=== PATIENT | female | born 1990 | race Caucasian/White ===

== ENCOUNTER 2020-11-08 04:00 | Inpatient (IN) ==
[2020-11-08] MEDS ORDERED: Famotidine 20 MG/2 ML VIAL IVP PRN (04:18)
[2020-11-08] MEDS ORDERED: Naloxone 0.4 MG/ML INJ IVP PRN (04:18)
[2020-11-08] MEDS ORDERED: *HR* Nalbuphine 10 MG/ML AMPUL IV PRN (04:18)
[2020-11-08] MEDS ORDERED: Metoclopramide 10 MG/2 ML VIAL IVP PRN (04:18)
[2020-11-08] MEDS ORDERED: Lidocaine 1% 20 ML MDV INFILT PRN (04:18)
[2020-11-08] MEDS ORDERED: Oxytocin 20 units/ LR 1000 mL 20 UNIT/1,000 ML BAG IVC SCH ×2 (04:30→18:45)
[2020-11-08] MEDS ORDERED: FLU Vac QV 20-21 (6Month+)/PF 0.5 ML SYRINGE IM ONE (04:39)
[2020-11-08] MEDS ORDERED: miSOPROStoL 25 MCG TABLET PO ONE (05:00)
[2020-11-08] MEDS: Ringers Solution, Lactated 1,000 ML IVC SCH ×3 (05:08→14:03)
[2020-11-08 05:15] LABS: Amphetamine Screen,Urine Negative ng/mL (Cutoff=1000); Barbiturate Screen,Urine Negative ng/mL (Cutoff=200); Benzodiazepines Screen,Urine Negative ng/mL (Cutoff=200); Cannabinoid Screen,Urine Negative ng/mL (Cutoff = 50); Cocaine Screen,Urine Negative ng/mL (Cutoff= 300); Creatinine,Urine 103 mg/dL; Opiate Screen,Urine Negative ng/mL (Cutoff=300); Phencyclidine Screen,Urine Negative ng/mL (Cutoff=25); Protein/Creatinine Ratio,Urine 0.25 mg/mg (0.00-0.20)
[2020-11-08 05:25] LABS: Alanine Aminotransferase 17 Units/L (7-52); Aspartate Amino Transferase 22 Units/L (13-39); BUN/Creatinine Ratio 25 (6-26); Blood Urea Nitrogen 11 mg/dL (6-20); Lactate Dehydrogenase 190 Units/L (140-271); Uric Acid 4.1 mg/dL (2.3-7.6); eGFR For African Americans > 60 (> 60); eGFR For Non-African Americans > 60 (> 60)
[2020-11-08 05:40] LABS: Basophils % 0.2 %; Eosinophils # 0.2 K/mcL (0.0-0.6); Eosinophils % 1.8 %; Hematocrit 35.1 % (35.3-44.9); Hemoglobin 11.6 g/dL (11.5-15.4); Lymphocytes # 2.1 K/mcL (0.6-4.6); Mean Corpuscular Hemoglobin 28.6 pg (28.0-33.3); Mean Corpuscular Volume 86.5 fL (83.0-100.0); Mean Platelet Volume 11.4 fL (9.4-12.4); Monocytes # 0.7 K/mcL (0.0-1.3); Monocytes % 7.3 %; Neutrophils # 6.4 K/mcL (1.6-8.9); Platelet Count 202 K/mcL (140-400); Red Blood Count 4.06 M/mcL (3.82-4.97); Red Cell Distribution Width 12.8 % (11.5-14.5); Segmented Neutrophils % 67.7 %; White Blood Count 9.4 K/mcL (4.3-11.1)
[2020-11-08] MEDS ORDERED: Epidural Premix (fent/bupiv) 110 ML EP ONE (13:33)
[2020-11-08] MEDS ORDERED: Ropivacaine/PF 0.2% 20 ML VIAL ONE (13:34)
[2020-11-08] MEDS ORDERED: *HR* FentaNYL (PF) 100 MCG/2 ML VIAL ONE (13:34)
[2020-11-08] MEDS ORDERED: EPHEDrine 50 MG/ML VIAL IVP PRN (13:58)
[2020-11-08] MEDS ORDERED: Epidural Premix (fent/bupiv) 110 ML EP SCH (14:00)
[2020-11-08] MEDS ORDERED: Ondansetron 4 MG/2 ML VIAL IVP ONE (16:29)
[2020-11-08] MEDS ORDERED: Rho Immune Globulin 1,500 UNIT SYRINGE IM PRN (18:45)
[2020-11-08] MEDS ORDERED: Measles/Mumps/Rubella Vacc 0.5 ML VIAL SQ PRN (18:45)
[2020-11-08] MEDS ORDERED: Sennosides 8.6 MG TABLET PO PRN (18:45)
[2020-11-08] MEDS ORDERED: Oxytocin 20 units/ LR 1000 mL 20 UNIT/1,000 ML BAG IVC ONE (18:45)
[2020-11-08] MEDS ORDERED: Acetaminophen 325 MG TABLET PO PRN (18:45)
[2020-11-08] MEDS ORDERED: Benzocaine/Menthol 56 GM AEROSOL SPRAY TP PRN (18:45)
[2020-11-08] MEDS: Ibuprofen 600 MG TABLET PO PRN (20:48)
[2020-11-09] MEDS: Ibuprofen 600 MG TABLET PO PRN (03:24)
[2020-11-09 04:58] LABS: Basophils % 0.2 %; Eosinophils # 0.1 K/mcL (0.0-0.6); Hemoglobin 11.3 g/dL (11.5-15.4); Immature Granulocytes % 0.6 % (0-4); Lymphocytes # 2.3 K/mcL (0.6-4.6); Lymphocytes % 16.2 %; Mean Corpuscular HGB Conc 34.2 g/dL (31.6-35.5); Mean Corpuscular Hemoglobin 29.6 pg (28.0-33.3); Mean Corpuscular Volume 86.4 fL (83.0-100.0); Mean Platelet Volume 12.2 fL (9.4-12.4); Monocytes # 1.1 K/mcL (0.0-1.3); Monocytes % 7.6 %; Neutrophils # 10.7 K/mcL (1.6-8.9); Platelet Count 191 K/mcL (140-400); Red Blood Count 3.82 M/mcL (3.82-4.97); Red Cell Distribution Width 12.8 % (11.5-14.5); Segmented Neutrophils % 74.4 %; White Blood Count 14.4 K/mcL (4.3-11.1)
[2020-11-09] MEDS ORDERED: Prenatal Vit/FA 1 EACH TABLET PO SCH (09:00)
[2020-11-09] MEDS ORDERED: NON-FORMULARY MEDICATION 1 EACH EACH (Prenatal Caplet 1 TAB) PO SCH (09:00)
[2020-11-09] MEDS ORDERED: FLU Vac QV 20-21 (6Month+)/PF 0.5 ML SYRINGE IM ONE (14:50)
[2020-11-09 15:33] VITALS: BP 130/88
== END 2020-11-09 18:28 | disposition home or self-care (01) | DRG 806 ==
LOC: 1NENULAB 04:07 → 1NENUOBS 19:34
PROVIDERS: ADMIT Student in an Organized Health Care Education/Training Program; ATTEND Student in an Organized Health Care Education/Training Program